=== PATIENT | male | born 1990 | race American Indian/Alaskan Native ===

== ENCOUNTER 2017-11-02 08:34 | Emergency (ER) | payer OTHER ==
[2017-11-02 08:35] VITALS: BMI 22.6
[2017-11-02 08:59] VITALS: RESP 18
[2017-11-02] MEDS ORDERED: Sodium Chloride 0.9% 1,000 ML IV STA (09:10)
--- NOTE | 2017-11-02 09:13 | ED PDOC ---
Arrival/HPI - General Chief Complaint: GI Problem Time Seen by Provider: 11/02/17 09:10 Historian: Patient - History of Present Illness Narrative History of Present Illness (Text): 11/02/17 09:10 27 y/o male, no pmh, nkda, no recent traveling, c/o nausea/vomiting/diarrhea started last night. Pt. stated that he went out to eat last night of burger around 8pm, 4-5 days started to have 3-4 episodes of vomiting and non-bloody diarrhea as well which both symptoms are already decreased, just feeling fatigue , no bodyache, no abdominal pain, no abdominal surgery, no flank pain or urinary symptoms, no other medical or psychological complaints. Past Medical History - Provider Review Nursing Documentation Reviewed: Yes - Infectious Disease Hx of Infectious Diseases: None - Psychiatric Hx Substance Use: No - Anesthesia Hx Anesthesia: No Hx Anesthesia Reactions: No Family/Social History - Physician Review Nursing Documentation Reviewed: Yes Family/Social History: Unknown Family HX Smoking Status: Never Smoked Hx Alcohol Use: No Hx Substance Use: No Allergies/Home Meds Allergies/Adverse Reactions: Allergies No Known Allergies Allergy (Verified 11/02/17 08:59) Review of Systems - Review of Systems Constitutional: Fatigue. absent: Fevers Eyes: absent: Vision Changes ENT: absent: Hearing Changes Respiratory: absent: SOB, Cough Cardiovascular: absent: Chest Pain Gastrointestinal: Diarrhea, Nausea, Vomiting. absent: Abdominal Pain Musculoskeletal: absent: Arthralgias, Back Pain, Myalgias Skin: absent: Rash, Pruritis Neurological: absent: Headache Psychiatric: absent: Anxiety, Depression, Suicidal Ideation Physical Exam Vital Signs Reviewed: Yes Vital Signs Temp Pulse Resp BP Pulse Ox 11/02/17 10:35 98.3 F 73 18 125/79 99 11/02/17 08:56 98.8 F 74 18 123/74 100 Temperature: Afebrile Blood Pressure: Normal Pulse: Regular Respiratory Rate: Normal Appearance: Positive for: Well-Appearing, Non-Toxic, Comfortable Pain Distress: None Mental Status: Positive for: Alert and Oriented X 3 - Systems Exam Head: Present: Atraumatic, Normocephalic Pupils: Present: PERRL Extroacular Muscles: Present: EOMI Conjunctiva: Present: Normal Mouth: Present: Moist Mucous Membranes Neck: Present: Normal Range of Motion Respiratory/Chest: Present: Clear to Auscultation, Good Air Exchange. No: Respiratory Distress, Accessory Muscle Use Cardiovascular: Present: Regular Rate and Rhythm, Normal S1, S2. No: Murmurs Abdomen: Present: Normal Bowel Sounds. No: Tenderness, Distention, Peritoneal Signs, Rebound, Guarding Back: Present: Normal Inspection Upper Extremity: Present: Normal Inspection. No: Cyanosis, Edema Lower Extremity: Present: Normal Inspection. No: Edema Neurological: Present: GCS=15, CN II-XII Intact, Speech Normal, Motor Func Grossly Intact, Gait Normal, Memory Normal Skin: Present: Warm, Dry, Normal Color. No: Rashes Psychiatric: Present: Alert, Oriented x 3, Normal Insight, Normal Concentration Medical Decision Making ED Course and Treatment: 11/02/17 09:13 -labs/ua -IVF/pepcid/zofran -observe and reassess 11/02/17 10:18 -Labs are non-significant -UA show no UTI -Pt. is tolerating PO, no abdominal pain or discomfort, vitally stable, will discharge home. -Discharge home with pepcid, zofran, bed rest, avoid dairy product until symptoms resolved, BRAT diet, follow up with your own pmd and GI within 2 days, return to the ER for any new or worsening signs or symptoms. - Lab Interpretations Lab Results: 11/02/17 09:20 11/02/17 09:20 Lab Results 11/02/17 09:20: WBC 3.7 L, RBC 5.23, Hgb 15.4, Hct 44.3, MCV 84.7, MCH 29.4, MCHC 34.8, RDW 13.8, Plt Count 171, MPV 11.4 H, Gran % 49.6 L, Lymph % (Auto) 41.0 H, [place] % (Auto) 7.0 H, Eos % (Auto) 1.9, Baso % (Auto) 0.5, Gran # 1.84, Lymph # (Auto) 1.5, [place] # (Auto) 0.3, Eos # (Auto) 0.1, Baso # (Auto) 0.02 11/02/17 09:20: Sodium 139, Potassium 3.6, Chloride 99, Carbon Dioxide 33, Anion Gap 11, BUN 11, Creatinine 1.0, Est GFR ( Amer) > 60, Est GFR (Non- Af Amer) > 60, Random Glucose 98, Calcium 9.8, Total Bilirubin 0.6, AST 32, ALT 34, Alkaline Phosphatase 50, Total Protein 7.4, Albumin 4.4, Globulin 3.0, Albumin/Globulin Ratio 1.5, Lipase 89 11/02/17 09:20: Urine Color Yellow, Urine Appearance Clear, Urine pH 8.5, Ur Specific [place] 1.020, Urine Protein Trace H, Urine Glucose (UA) Negative, Urine Ketones Negative, Urine Blood Negative, Urine Nitrate Negative, Urine Bilirubin Negative, Urine Urobilinogen 0.2, Ur Leukocyte Esterase Negative, Urine RBC Negative, Urine WBC 0 - 2, Ur Epithelial Cells 0 - 2, Urine Bacteria Small - Medication Orders Current Medication Orders: Discontinued Medications Famotidine (Pepcid) 20 mg IVP STAT STA Stop: 11/02/17 09:11 Last Admin: 11/02/17 09:23 Dose: 20 mg IVP Administration Document 11/02/17 09:23 [facility] (Rec: 11/02/17 09:23 [facility] [id number]) Charges for Administration # of IVP Administrations 1 Sodium Chloride (Sodium Chloride 0.9%) 1,000 mls @ 999 mls/hr IV .Q1H1M STA Stop: 11/02/17 10:10 Last Admin: 11/02/17 09:21 Dose: 999 mls/hr eMAR Start Stop Document 11/02/17 09:21 [facility] (Rec: 11/02/17 09:22 [facility] [id number]) Intravenous Solution Start Date 11/02/17 Start Time 09:22 End Date 11/02/17 End time 10:22 Total Infusion Time 60 Ondansetron HCl (Zofran Inj) 4 mg IVP STAT STA Stop: 11/02/17 09:11 Last Admin: 11/02/17 09:23 Dose: 4 mg IVP Administration Document 11/02/17 09:23 [facility] (Rec: 11/02/17 09:24 [id number] Charges for Administration # of IVP Administrations 1 - PA / [employer] / Resident Statement / has reviewed & agrees with the documentation as recorded. Disposition/Present on Arrival - Present on Arrival Any Indicators Present on Arrival: No History of DVT/PE: No History of Uncontrolled Diabetes: No Urinary Catheter: No History of Decub. Ulcer: No History Surgical Site Infection Following: None - Disposition Have Diagnosis and Disposition been Completed?: Yes Diagnosis: Gastroenteritis, Nausea, vomiting and diarrhea Disposition: HOME/ ROUTINE Disposition Time: 09:14 Patient Plan: Discharge Patient Problems: Current Active Problems Problem Status Onset Gastroenteritis Acute Nausea, vomiting and diarrhea Acute Condition: IMPROVED Additional Instructions: -Discharge home with pepcid, zofran, bed rest, avoid dairy product until symptoms resolved, BRAT diet, follow up with your own pmd and GI within 2 days, return to the ER for any new or worsening signs or symptoms. Prescriptions: Famotidine [Pepcid] 20 mg PO BID #30 tab Ondansetron [Zofran] 4 mg PO Q8H PRN #10 tab PRN Reason: Nausea/Vomiting Referrals: [facility] [Primary Care Provider] - Follow up with primary [facility] [place] [Outside] - Follow up with primary Kyaw Ramos MD [Staff Provider] - Follow up with primary Forms: WORK NOTE
[2017-11-02 09:39] LABS: ALB/GLOB RATIO 1.5 (1.1-1.8); ALBUMIN 4.4 g/dL (3.0-4.8); ALT/SGPT 34 U/L (7-56); AST/SGOT 32 U/L (17-59); BLOOD UREA NITROGEN 11 mg/dL (7-21); CALCIUM 9.8 mg/dL (8.4-10.5); GFR AFRICAN-AMERICAN > 60; GFR NON-AFRICAN AMERICAN > 60; LIPASE 89 U/L (23-300)
[2017-11-02 10:01] LABS: BASO # 0.02 K/mm3 (0.0-2.0); BASO % 0.5 % (0.0-3.0); EOS # 0.1 (0.0-0.7); EOS % 1.9 % (1.5-5.0); GRAN # 1.84 (1.4-6.5); GRAN % 49.6 % (50.0-68.0); HEMOGLOBIN 15.4 g/dL (14.0-18.0); LYMPH # 1.5 (1.2-3.4); MEAN CELL VOLUME 84.7 fl (80.0-105.0); MEAN CORPUSCULAR HEMOGLOBIN 29.4 pg (25.0-35.0); MEAN CORPUSCULAR HGB CONC 34.8 g/dl (31.0-37.0); MEAN PLATELET VOLUME 11.4 fl (7.0-11.0); MONO # 0.3 (0.1-0.6); PH,URINE 8.5 (4.7-8.0); RBC 5.23 10^6/uL (3.5-6.1); RED CELL DISTRIBUTION WIDTH 13.8 % (11.5-14.5); URINE BILIRUBIN NEGATIVE (NEGATIVE); URINE BLOOD NEGATIVE (NEGATIVE); URINE GLUCOSE (UA) NEGATIVE (NEGATIVE); URINE LEUKOCYTE ESTERASE NEGATIVE Leu/uL (NEGATIVE); URINE PROTEIN TRACE mg/dL (<30 mg/dL); URINE UROBILINOGEN 0.2 E.U./dL (<1 E.U./dL); WHITE BLOOD COUNT 3.7 10^3/ul (4.5-11.0)
[2017-11-02 10:02] LABS: URINE APPEARANCE CLEAR (CLEAR); URINE COLOR YELLOW (YELLOW)
[2017-11-02 10:12] LABS: URINE BACTERIA SMALL (NEG); URINE EPITHELIAL CELLS 0 - 2 /hpf (0-5); URINE RBC NEGATIVE /hpf (0-2); URINE WBC 0 - 2 /hpf (0-6)
[2017-11-02 10:38] VITALS: BP 125/79; PULSE 73; TEMP 98.3; O2SAT 99
== END 2017-11-02 10:40 | disposition home or self-care (01) ==
LOC: ED 08:34
DX: K52.9 Noninfective gastroenteritis and colitis, unspecified (principal)
CPT/HCPCS: 80053; 81001; 83690; 85025; 96361; 96374; 96375; 99283; J2405; J7040